=== PATIENT | male | born 1980 | race Hispanic/Latino ===

== ENCOUNTER 2017-02-27 23:10 | Emergency (ER) | payer SELFPAY ==
--- NOTE | 2017-02-28 00:15 | C.PDOC ---
History Of Present Illness 36 year old male who presents to the ER with a complaint of an abscess below his right anterior ear lobe. Denies fever, chills, headache, ear pain, d/c from the ear, sore throat, or URI symptoms. Time Seen by Provider: 02/27/17 23:13 Chief Complaint (Nursing): Abnormal Skin Integrity History Per: Patient History/Exam Limitations: no limitations Onset/Duration Of Symptoms: Days Current Symptoms Are (Timing): Still Present Recent travel outside of the [place]: No Past Medical History Reviewed: Historical Data, Nursing Documentation, Vital Signs Vital Signs: Last Vital Signs Temp 98.2 F 02/28/17 00:34 Pulse 78 02/28/17 00:34 Resp 22 02/28/17 00:34 BP 122/72 02/28/17 00:34 Pulse Ox 98 02/28/17 00:34 - Medical History PMH: No Chronic Diseases Surgical History: No Surg Hx Family History: States: Unknown Family Hx - Social History Hx Alcohol Use: Yes Hx Substance Use: Yes - Immunization History Hx Tetanus Toxoid Vaccination: No Hx Influenza Vaccination: No Hx Pneumococcal Vaccination: No Review Of Systems Constitutional: Negative for: Fever, Chills ENT: Negative for: Ear Pain, Ear Discharge Respiratory: Negative for: Cough, Shortness of Breath, Wheezing Musculoskeletal: Negative for: Neck Pain Skin: Positive for: Other (Abscess) Physical Exam - Physical Exam Appears: Well, Non-toxic, No Acute Distress Skin: Normal Color, Warm, Dry Head: Atraumatic, Normacephalic Eye(s): bilateral: Normal Inspection, PERRL, EOMI Ear(s): Right: Other (1x2cm erythematous, tender, fluctuant abscess below the anterior right ear), Bilateral: Normal Nose: Normal, No Discharge Oral Mucosa: Moist Neck: Normal, Normal ROM, Trachea Midline, No Midline Cervical Tenderness, No Paracervical Tenderness, Supple Chest: Symmetrical Cardiovascular: Rhythm Regular, No Murmur Respiratory: Normal Breath Sounds, No Decreased Breath Sounds, No Rales, No Rhonchi, No Stridor Back: Normal Inspection, No Vertebral Tenderness Extremity: Normal ROM, No Tenderness, No Swelling Neurological/Psych: Oriented x3, Normal Speech, Normal Cognition, Normal Cranial Nerves ED Course And Treatment O2 Sat by Pulse Oximetry: 100 (Room air) Pulse Ox Interpretation: Normal - Incision & Drainage Of Abscess Prep Used: Sterile Water, Betadine Procedure: Incised W/Scalpel Blade#: (using an 18 gauge needle to create a superficial puncture to the abscess, small amount of yellow purulent discharg was extracted, afterwards a every small superficial incision made, +moderate amount of yellow purulent material was drained, due to the location of the abscess, wound was not packed, area was cleaned and dressing applied. Post procedure the pt had normal sensation to his entire face, jaw and neck ) Medical Decision Making Medical Decision Makin36 year old male who presents to the ER with a complaint of an abscess below his right anterior ear lobe. Plan: * Cleocin PO * Tetanus vaccination * I&D Rx for clindamycin given to the pt. Advised to finish the full course of antibiotics, keep wound clean, instructed on how to properly clean the wound daily. Otherwise advised return to the ER at any time for any new or worsening symptoms, and to follow up with the clinic in 2 days without fail for re- evaluation. Disposition Counseled Patient/Family Regarding: Diagnosis, Need For Followup, Rx Given - Disposition Referrals: [facility] [Outside] Disposition: HOME/ ROUTINE Disposition Time: 00:00 Condition: STABLE Additional Instructions: Take medication as prescribed. Return to the ER at any time for any new or worsening symptoms. Otherwise advised follow up with pmd in 1-2 days without fail for re-evaluation. Prescriptions: Clindamycin [Cleocin] 300 mg PO TID #30 cap Instructions: Abscess (ED) Forms: [facility] (Peruvian), Work Excuse Print Language: CROATIAN - Clinical Impression Clinical Impression: Abscess - PA / SWATCHER / Resident Statement MD/DO has reviewed & agrees with the documentation as recorded. - Scribe Statement The provider has reviewed the documentation as recorded by the Scribe Juan Luis Xiao All medical record entries made by the Nilsaibjaylene were at my direction and personally dictated by me. I have reviewed the chart and agree that the record accurately reflects my personal performance of the history, physical exam, medical decision making, and the department course for this patient. I have also personally directed, reviewed, and agree with the discharge instructions and disposition.
--- NOTE | 2017-02-28 00:17 | C.PDOC ---
History Of Present Illness 36 year old male who presents to the ER with a complaint of an abscess Time Seen by Provider: 02/27/17 23:13 Chief Complaint (Nursing): Abnormal Skin Integrity Past Medical History Vital Signs: Last Vital Signs Temp 97.6 F 02/27/17 23:14 Pulse 88 02/27/17 23:14 Resp 16 02/27/17 23:14 BP 123/74 02/27/17 23:14 Pulse Ox 100 02/27/17 23:14 - Social History Hx Alcohol Use: Yes Hx Substance Use: Yes - Immunization History Hx Tetanus Toxoid Vaccination: No Hx Influenza Vaccination: No Hx Pneumococcal Vaccination: No ED Course And Treatment O2 Sat by Pulse Oximetry: 100 Disposition - Disposition Prescriptions: Clindamycin [Cleocin] 300 mg PO TID #30 cap Forms: [employer] (Danish)
[2017-02-28 00:37] VITALS: BP 122/72; PULSE 78; RESP 22; TEMP 98.2
[2017-02-28 01:45] VITALS: O2SAT 100
== END 2017-02-28 00:34 | disposition home or self-care (01) ==
LOC: C.ER 23:10
DX: H60.01 Abscess of right external ear (principal)